=== PATIENT | female | born 2000 | race Caucasian/White ===

== ENCOUNTER 2022-09-15 03:18 | Emergency (ER) | payer BC ==
[~2022-09-15] VITALS: Ht 160 cm; Wt 95.3 kg
--- NOTE | 2022-09-15 04:14 | NUR ---
BIBSELF FROM HOME C/O RLE PAIN S/P GLF AT WORK YESTERDAY NIGHT. -LOC. -HEAD TRAUMA. PT AAOX4, AMBULATORY, IN NAD. PLACED IN BED, VITALS CHECKED, AWAITING MD ESCALERA.
[2022-09-15] MEDS ORDERED: ACETAMINOPHEN ES 500 MG TABLET PO ONE (04:30)
[2022-09-15] MEDS ORDERED: ACETAMINOPHEN ES 500 MG TABLET ONE (04:57)
--- NOTE | 2022-09-15 04:59 | NUR ---
XR AT BEDSIDE
[2022-09-15 06:06] VITALS: BP 119/83; TEMP 98.1; O2SAT 96
--- NOTE | 2022-09-15 06:06 | NUR ---
Patient discharged to home in stable condition. Written and verbal after care instructions given. Patient verbalizes understanding of instruction.
== END 2022-09-15 06:07 | disposition home or self-care (01) ==
LOC: ER 03:29
DX: S93.491A Sprain of other ligament of right ankle, initial encounter (principal); S83.8X1A Sprain of other specified parts of right knee, initial encounter; Z90.49 Acquired absence of other specified parts of digestive tract; Z60.2 Problems related to living alone; W01.0XXA Fall on same level from slipping, tripping and stumbling without subsequent striking against object, initial encounter; Y93.89 Activity, other specified; Y92.89 Other specified places as the place of occurrence of the external cause; Y99.8 Other external cause status
CPT/HCPCS: 73564-TC; 73610-TC

== ENCOUNTER 2023-03-07 10:16 | Emergency (ER) | payer BC, MEDICAID ==
[~2023-03-07] VITALS: Ht 160 cm; Wt 95.3 kg
[2023-03-07 11:21] LABS: PREGNANCY TEST URINE QUAL NEGATIVE (NEGATIVE)
[2023-03-07] MEDS ORDERED: GUAIFENESIN/D-METHORPHAN HB 5 ML UDC ONE (11:45)
[2023-03-07] MEDS ORDERED: GUAIFENESIN/D-METHORPHAN HB 5 ML UDC PO ONE (12:00)
[2023-03-07] MEDS ORDERED: [UNRECOGNIZED DRUG - CODE] PO (13:21)
[2023-03-07] MEDS ORDERED: GUAI1TBM19 PO (13:22)
[2023-03-07 13:36] VITALS: BP 130/85; TEMP 98.7; O2SAT 96
== END 2023-03-07 13:35 | disposition home or self-care (01) ==
LOC: ER 10:23
DX: R05.9 Cough, unspecified (principal); Z90.89 Acquired absence of other organs; Z60.2 Problems related to living alone; Z20.822 Contact with and (suspected) exposure to COVID-19
CPT/HCPCS: 71045-TC; 84703-TC